=== PATIENT | male | born 1960 | race Caucasian/White ===

== ENCOUNTER 2019-06-02 08:54 | Emergency (ER) | payer OTHER ==
[2019-06-02 09:07] VITALS: BP 154/94
--- NOTE | 2019-06-02 09:08 | PHYS DOC ---
Adult General Chief Complaint Chief Complaint: SHORTNESS OF BREATH HPI HPI Patient is a 59-year-old male who presents with approximately one-week history of productive cough and some wheezing. Patient denies any fever. Patient was seen earlier in the week at urgent care and was diagnosed with bronchitis. Patient has been taking prescribed medications. He states that he wanted to come in to make sure that his infection was not turning into pneumonia before he goes into work tomorrow. He does indicate that symptoms have begun to improve.[] Review of Systems Review of Systems Constitutional: Denies fever or chills [] Respiratory: Positive cough without shortness of breath [] Cardiovascular: No additional information not addressed in HPI [] Integument: Denies rash or skin lesions [] Neurologic: Denies headache, focal weakness or sensory changes [] Physical Exam Physical Exam Constitutional: Well developed, well nourished, no acute distress, non-toxic appearance. [] Neck: Normal range of motion, no tenderness, supple, no stridor. [] Cardiovascular: Regular rate and rhythm[] Lungs & Thorax: Fine rhonchi bilaterally to auscultation [] Skin: Warm, dry, no erythema, no rash. [] Extremities: No tenderness, no cyanosis, no clubbing, ROM intact, no edema. [] Neurologic: Alert and oriented X 3, no focal deficits noted. [] EKG EKG [] Radiology/Procedures Radiology/Procedures [] Impressions: PROCEDURE: CHEST PA & LATERAL CHEST PA LATERAL History: Cough Comparison: None. Findings: Frontal and lateral views of the chest were obtained. The cardiomediastinal silhouette is normal. Pulmonary vasculature is normal. The lungs are clear. No pleural effusion or pneumothorax is seen. There is no acute bone abnormality. IMPRESSION: No acute cardiopulmonary process. Electronically signed by: Bill Harrington MD (06/02/2019 9:21 AM) [facility] Course & Med Decision Making Course & Med Decision Making Pertinent Labs and Imaging studies reviewed. (See chart for details) [] Dragon Disclaimer Dragon Disclaimer This electronic medical record was generated, in whole or in part, using a voice recognition dictation system. Departure Departure: Impression: Primary Impression: Bronchitis Disposition: 01 HOME, SELF-CARE Condition: STABLE Referrals: OFELIA WILLIAMSON DO (PCP) Patient Instructions: Acute Bronchitis Additional Instructions: Continue taking the medications already prescribed as directed. TONYA GOETZ Jr. DO Jun 02, 2019 09:08
--- NOTE | 2019-06-02 09:24 | RAD ---
CHEST PA LATERAL History: Cough Comparison: None. Findings: Frontal and lateral views of the chest were obtained. The cardiomediastinal silhouette is normal. Pulmonary vasculature is normal. The lungs are clear. No pleural effusion or pneumothorax is seen. There is no acute bone abnormality. IMPRESSION: No acute cardiopulmonary process. Electronically signed by: Bill Harrington MD (06/02/2019 9:21 AM) [facility]
== END 2019-06-02 09:39 | disposition home or self-care (01) ==
LOC: ER 08:54
DX: J40 Bronchitis, not specified as acute or chronic (principal)
CPT/HCPCS: 71046; 99284

== ENCOUNTER 2019-06-05 10:53 | Emergency (ER) | payer OTHER ==
[2019-06-05 11:19] VITALS: BP 160/108
--- NOTE | 2019-06-05 11:32 | PHYS DOC ---
Past History Past Medical History: Hypertension Past Surgical History: No Surgical History Alcohol Use: None Drug Use: None Adult General Chief Complaint Chief Complaint: LOWER EXT PAIN HPI HPI Patient is a 59-year-old male who presents with complaint of painful varicose veins to his left inner leg. Patient states that over the last few days pain is gotten much worse and currently pain is quite severe. He states that initially the pain was up in his thigh area but now the pain radiates all the way down below his knee. He states that the pain is worsened with palpation and with weig htbearing.[] Review of Systems Review of Systems Constitutional: Denies fever or chills [] Respiratory: Denies cough or shortness of breath [] Cardiovascular: No additional information not addressed in HPI [] Musculoskeletal: Positive left leg pain [] Integument: Denies rash or skin lesions [] Neurologic: Denies headache, focal weakness or sensory changes [] All other systems were reviewed and found to be within normal limits, except as documented in this note. Allergies Allergies Allergies Coded Allergies Type Severity Reaction Last Updated Verified Penicillins Allergy Unknown 06/02/19 Yes Sulfa (Sulfonamide Antibiotics) Allergy Unknown 06/02/19 Yes clindamycin Allergy Unknown 06/02/19 Yes Physical Exam Physical Exam Constitutional: Well developed, well nourished, no acute distress, non-toxic appearance. [] HENT: Normocephalic, atraumatic, bilateral external ears normal, oropharynx moist, no oral exudates, nose normal. [] Eyes: PERRLA, EOMI, conjunctiva normal, no discharge. [] Neck: Normal range of motion, no tenderness, supple, no stridor. [] Cardiovascular: Regular rate and rhythm[] Lungs & Thorax: Bilateral breath sounds clear to auscultation [] Abdomen: Bowel sounds normal, soft. [] Skin: Warm, dry, no erythema, no rash. [] Extremities: Left lower extremity demonstrates palpable varicosity in the upper mid thigh which is quite tender. There is tenderness in the left calf as well. [] Neurologic: Alert and oriented X 3, no focal deficits noted. [] EKG EKG [] Radiology/Procedures Radiology/Procedures [] Impressions: PROCEDURE: VENOUS LOWER EXTREMITY LEFT Left lower extremity venous doppler ultrasound History: Left thigh redness and pain Comparison: None Findings: Multiple grayscale, color, and duplex spectral analysis sonographic images were acquired of the left lower extremity veins to evaluate for the presence of DVT. There is normal phasicity. Normal compression, color-flow, and augmentation is demonstrated from the left common femoral to the popliteal veins. There is color flow of the proximal left profunda femoris vein. There is normal color flow of the proximal greater saphenous vein. There is abnormal echogenicity greater saphenous vein extending from the level of the proximal thigh to the proximal calf region. There is also focus of abnormal echogenicity in varicose vein corresponding with reported site of redness and pain in the proximal mid thigh region, reportedly branch of the greater saphenous vein. Impression: 1. There is no evidence of deep venous thrombosis from the left common femoral to the popliteal veins. 2. There is superficial thrombophlebitis involving the left greater saphenous vein in the thigh to the proximal calf region and also varicose vein in the proximal to mid thigh region reportedly at site of redness and pain. Electronically signed by: Shivani Aguilera MD (06/05/2019 12:43 PM) [facility] DICTATED AND SIGNED BY: SHIVANI AGUILERA MD DATE: 06/05/19 1243 CC: TONYA GOETZ Jr. DO; OFELIA WILLIAMSON DO ~ Course & Med Decision Making Course & Med Decision Making Pertinent Labs and Imaging studies reviewed. (See chart for details) [] Dragon Disclaimer Dragon Disclaimer This electronic medical record was generated, in whole or in part, using a voice recognition dictation system. Departure Departure: Impression: Primary Impression: Leg vein thromboembolism, superficial Additional Impression: Varicose vein of leg Disposition: 01 HOME, SELF-CARE Condition: STABLE Referrals: OFELIA WILLIAMSON DO (PCP) Patient Instructions: Varicose Veins Scripts Hydrocodone Bit/Acetaminophen (NORCO 7.5-325 TABLET) 1 Each Tablet 1 TAB PO PRN Q6HRS PRN for PAIN, #12 TAB 0 Refills Prov: TONYA GOETZ Jr., DO 06/05/19 Problem Qualifiers Primary Impression: Leg vein thromboembolism, superficial Laterality: left Qualified Codes: I82.812 - Embolism and thrombosis of superficial veins of left lower extremity Additional Impression: Varicose vein of leg Varicose vein complication: pain Laterality: left Qualified Codes: I83.812 - Varicose veins of left lower extremity with pain TONYA GOETZ Jr. DO Jun 05, 2019 11:32
[2019-06-05] MEDS ORDERED: HYDR-3166 PO (12:27)
--- NOTE | 2019-06-05 12:46 | RAD ---
Left lower extremity venous doppler ultrasound History: Left thigh redness and pain Comparison: None Findings: Multiple grayscale, color, and duplex spectral analysis sonographic images were acquired of the left lower extremity veins to evaluate for the presence of DVT. There is normal phasicity. Normal compression, color-flow, and augmentation is demonstrated from the left common femoral to the popliteal veins. There is color flow of the proximal left profunda femoris vein. There is normal color flow of the proximal greater saphenous vein. There is abnormal echogenicity greater saphenous vein extending from the level of the proximal thigh to the proximal calf region. There is also focus of abnormal echogenicity in varicose vein corresponding with reported site of redness and pain in the proximal mid thigh region, reportedly branch of the greater saphenous vein. Impression: 1. There is no evidence of deep venous thrombosis from the left common femoral to the popliteal veins. 2. There is superficial thrombophlebitis involving the left greater saphenous vein in the thigh to the proximal calf region and also varicose vein in the proximal to mid thigh region reportedly at site of redness and pain. Electronically signed by: Erick Ko MD (06/05/2019 12:43 PM) [facility]
== END 2019-06-05 13:42 | disposition home or self-care (01) ==
LOC: ER 10:53
DX: I83.812 Varicose veins of left lower extremity with pain (principal); I82.812 Embolism and thrombosis of superficial veins of left lower extremity; I10 Essential (primary) hypertension; Z88.0 Allergy status to penicillin; Z88.2 Allergy status to sulfonamides; Z88.1 Allergy status to other antibiotic agents
CPT/HCPCS: 93971; 99284-25